=== PATIENT | female | born 1970 | race Caucasian/White ===

== ENCOUNTER 2016-12-04 12:49 | Emergency (ER) | payer OTHER ==
[~2016-12-04] VITALS: Ht 152.4 cm; Wt 79.8 kg
[~2016-12-04 12:49] MED LIST: OMEP20CA5 PO
[2016-12-04 12:58] VITALS: BP 125/82; PULSE 107; RESP 16; TEMP 99.4; O2SAT 96
[2016-12-04] MEDS ORDERED: CORT1SOL EACH EAR (14:29)
[2016-12-04] MEDS ORDERED: CEFT500T3 PO (14:29)
[2016-12-04] MEDS ORDERED: PHENERGAN W CODEIN PO (14:29)
--- NOTE | 2016-12-04 14:30 | RADHPO ---
EXAM DATE/TIME: 12/04/2016 13:52 [facility] COMPARISON: No previous studies available for comparison. INDICATIONS : Cough. MEDICAL HISTORY : None. SURGICAL HISTORY : None. ENCOUNTER: Initial ACUITY: 3 weeks PAIN SCORE: 0/10 LOCATION: Bilateral chest FINDINGS: The cardiac silhouette is normal in transverse diameter. The lungs are free of acute parenchymal opac ity. No effusions are identified. There is mild scoliotic deformity convex to the right. CONCLUSION: 1. No acute cardiopulmonary disease. Josué Amos MD on December 04, 2016 at 14:29 Board Certified Radiologist. This report was verified electronically.
--- NOTE | 2016-12-04 14:35 | PD ---
HPI Chief Complaint: Cold / Flu Symptoms Time Seen by Provider: 13:40 Travel History International Travel<30 days: No Contact w/Intl Traveler<30days: No Traveled to known affect area: No History of Present Illness HPI 46-year-old female complaining of persistent cough, headache, congestion, earache, sore throat, chest wall pain. Patient states that the symptoms started about 2 weeks ago. Patient states that she was seen by physician locally and given amoxicillin. Patient states that the symptoms persist despite the medication. Patient was seen by physician 2 days ago and given prescription for doxycycline. Patient states that she had persistent dry cough. Patient states that she has mild headache and earache and sore throat. Patient denies any fever chills. Patient denies any abdominal pain. Patient has nausea but no vomiting or diarrhea. PFSH Past Medical History Cancer: No Cardiovascular Problems: Yes (MURMMUR) Diabetes: No Diminished Hearing: No Endocrine: No Genitourinary: No Hepatitis: No Hiatal Hernia: No Immune Disorder: No Musculoskeletal: No Neurologic: No Psychiatric: No Reproductive: No Respiratory: No Immunizations Current: Yes Pancreatitis: Yes Thyroid Disease: No Influenza Vaccination: Yes ?: Not Past Surgical History Abdominal Surgery: Yes ( x 2) AICD: No Section: Yes (x 2) Joint Replacement: No Pacemaker: No Other Surgery: Yes Social History Alcohol Use: Yes (Socially) Tobacco Use: No Substance Use: No Allergies-Medications (Allergen,Severity, Reaction): Coded Allergies: Tramadol (Verified Allergy, Unknown, ITCHING/HIVES, 12/04/16) Reported Meds & Prescriptions Reported Meds & Active Scripts Active Cortisporin HC Otic Drops (Paqevvnt-Qpcjdaaze-BV Otic Drops) 3.5-10,000-1 Mg- Units-% Soln 4 Drop EACH EAR QID [Phenergan W Codein] 10 Ml PO Q6HR Ceftin (Cefuroxime Axetil) 500 Mg Tab 500 Mg PO BID Review of Systems General / Constitutional: No: Fever Eyes: No: Visual changes HENT: Positive: Sore Throat, Earache, No: Headaches Cardiovascular: No: Chest Pain or Discomfort Respiratory: Positive: Cough, No: Shortness of Breath Gastrointestinal: No: Abdominal Pain Genitourinary: No: Dysuria Musculoskeletal: No: Pain Skin: No Rash Neurologic: No: Weakness Psychiatric: No: Depression Endocrine: No: Polydipsia Hematologic/Lymphatic: No: Easy Bruising Physical Exam Narrative GENERAL: Well-nourished, well-developed patient. SKIN: Focused skin assessment warm/dry. HEAD: Normocephalic. EYES: No scleral icterus. No injection or drainage. Both ear canals are impacted with cerumen. Throat: Mild erythematous. NECK: Supple, trachea midline. No JVD. Patient has mild anterior cervical lymphadenopathy. No meningismus CARDIOVASCULAR: Regular rate and rhythm without murmurs, gallops, or rubs. RESPIRATORY: Breath sounds equal bilaterally. No accessory muscle use. GASTROINTESTINAL: Abdomen soft, non-tender, nondistended. MUSCULOSKELETAL: No cyanosis, or edema. BACK: Nontender without obvious deformity. No CVA tenderness. Data Data Last Documented VS Vital Signs Date Time Temp Pulse Resp B/P Pulse Ox O2 Delivery O2 Flow Rate FiO2 12/04/16 13:26 Room Air 12/04/16 12:58 99.4 107 16 125/82 96 Orders Chest, Single Ap (12/04/16 13:45) [facility] Medical Decision Making Medical Screen Exam Complete: Yes Emergency Medical Condition: Yes Interpretation(s) 1435 PM. Chest x-ray shows no acute consolidation. Differential Diagnosis Differential diagnosis including viral syndrome, otitis media, pharyngitis, bronchitis, pneumonia. Narrative Course 46-year-old female with headache, earache, sore throat, coughing congestion. Procedures Procedure Narrative Bilateral ear irrigation with warm water. Diagnosis Primary Impression: Bronchitis Additional Impression: Impacted cerumen Qualified Code: H61.23 - Bilateral impacted cerumen Patient Instructions: General Instructions Additional Instructions: Continue with doxycycline. Ceftin as directed. Cough medication as directed. Tylenol for fever headache. Follow-up with personal physician. Return if worse. Med/Other Pt SpecificInfo: Prescription(s) given Scripts Atykwfcl-Dvwxwcfnl-NB Otic Drops (Cortisporin HC Otic Drops)3.5-10,000-1 Mg- Units-% Soln4 Drop EACH EAR QID #1 BOTTLE Ref 0 Prov:Abel Hinsd MD 12/04/16 [Phenergan W Codein] No Conflict Check10 Ml PO Q6HR #120 Prov:Abel Hinds MD 12/04/16 Cefuroxime (Ceftin)500 Mg [id number] Mg PO BID #20 TAB Ref 0 Prov:Abel Hinds MD 12/04/16 Disposition: 01 DISCHARGE HOME Condition: Stable Abel Hinds MD Dec 04, 2016 14:35
[2016-12-04 15:04] VITALS: BP 122/77
== END 2016-12-04 15:17 | disposition home or self-care (01) ==
LOC: PHED 12:49
DX: J40 Bronchitis, not specified as acute or chronic (principal); H61.23 Impacted cerumen, bilateral
CPT/HCPCS: 71010; 99283

== ENCOUNTER → 2017-06-11 | Day surgery (SDC) | payer OTHER ==
[~2017-06-11] MED LIST changes: +BUPIVACAINE HCL PF 0.25% 30 ML VIAL ONE; +CEFT500T3 PO; +CORT1SOL EACH EAR; +KETOROLAC TROMETHAMINE 30 MG/ML (IVP) VIAL IV PUSH ONE; +MIDAZOLAM HCL 2 MG/2 ML VIAL ONE; -OMEP20CA5 PO; +ONDANSETRON HCL 4 MG/2 ML VIAL IV PUSH ONE; +PHENERGAN W CODEIN PO; +PROPOFOL 200 MG/20 ML AMP IV ONE; +ceFAZolin 2 GM PREMIX 50 ML ONE
--- NOTE | 2017-06-11 23:50 | MP ---
cc: RADHA RODRIGUES DPM DATE OF SURGERY 06/11/17 PREOPERATIVE DIAGNOSIS Left fourth digit hammertoe. POSTOPERATIVE DIAGNOSIS Left fourth digit hammertoe. PROCEDURE Left fourth digit DIPJ arthroplasty fusion. SPECIMEN None. ESTIMATED BLOOD LOSS Less than 10 ml. COMPLICATIONS None. ANESTHESIA General with local 15 cc of 0.25% Marcaine plain. TOURNIQUET TIME 25 minutes approximately at 215 mmHg about the patient's left calf. PLAN OF ACTIVITY PACU then DC home once stable per same-day surgery criteria. JUSTIFICATION FOR PROCEDURE This is a pleasant 46-year-old female with worsening toe deformity and pain with ambulation. We devised a plan to move forward with fusion of the deformed joint at the DIPJ. The patient was educated on pin fixation, stiffness, swelling, possible recurrence of deformity. No guarantees given or implied regarding the outcome. PROCEDURE IN DETAIL Under mild sedation the patient was brought to the operating room, placed on the operative table in the supine position. Following the induction of general anesthesia, local anesthesia was attained about the forefoot utilizing standard block fashion. The patient's foot was then scrubbed, prepped and draped in the usual aseptic fashion. The foot was elevated, exsanguinated and the previously placed mid-left ankle tourniquet was inflated to 215 mmHg. An incision was made over the dorsal aspect of the level of the DIPJ, this is approximately 1.5 cm incision. Sharp and blunt dissection was carried down to the extensor digitorum longus tendon which was then transected exposing the joint, the joint surface, the base of the distal phalanx and the head of the middle phalanx was then removed beyond the cartilaginous surface utilizing a K-wire. It was then placed the distal phalanx and then retrograded back across the DIPJ joint anchoring in the base of the proximal phalanx. Fluoroscopy was used. There was noted to be fusion of the toe joint. Clinically there was no longer a plantar flexor or abductovalgus type attitude of the digit including the correction of the procedure. The tendon was then coapted utilizing Vicryl. Skin was closed utilizing combination of Monocryl and nylon. Upon relieving the tourniquet there is a prompt hyperemic response to all digits without any delayed capillary fill time. A bulky bandage placed. The patient was then positioned within a controlled ankle motion boot. She is to heel weight bear to tolerance. I will see the patient in 3-5 days. EPIFANIO Irizarry/ALLY /3:55 PM /11:31 PM
== END | disposition home or self-care (01) ==
LOC: ESDC 12:38
PROVIDERS: ATTEND Podiatrist Foot & Ankle Surgery
DX: M20.42 Other hammer toe(s) (acquired), left foot (principal)
CPT/HCPCS: 01480; 28285; 73620; 76000; J0690; J1885; J2250; J2405; J3010

== ENCOUNTER 2017-12-22 14:11 | Emergency (ER) | payer OTHER ==
[~2017-12-22] VITALS: Ht 172.7 cm; Wt 84.3 kg
[~2017-12-22 14:11] MED LIST changes: -BUPIVACAINE HCL PF 0.25% 30 ML VIAL ONE; -KETOROLAC TROMETHAMINE 30 MG/ML (IVP) VIAL IV PUSH ONE; -MIDAZOLAM HCL 2 MG/2 ML VIAL ONE; -ONDANSETRON HCL 4 MG/2 ML VIAL IV PUSH ONE; -PROPOFOL 200 MG/20 ML AMP IV ONE; -ceFAZolin 2 GM PREMIX 50 ML ONE
[2017-12-22 14:18] VITALS: BP 144/65; PULSE 112; RESP 18; TEMP 98.5; O2SAT 97
[2017-12-22] MEDS ORDERED: CEFD300C PO (14:28)
[2017-12-22] MEDS ORDERED: ALBUAER3 INH (14:28)
[2017-12-22] MEDS ORDERED: RESP: ALBUTEROL 2.5 MG/IPRATROPIUM 0.5 MG NEB (SCH) INH ONE (14:45)
--- NOTE | 2017-12-22 14:45 | PD ---
HPI Chief Complaint: Cold / Flu Symptoms Time Seen by Provider: 14:31 Travel History International Travel<30 days: No Contact w/Intl Traveler<30days: No Traveled to known affect area: No History of Present Illness HPI 47-year-old female presents emergency department for evaluation of cough, congestion and chest tightness that has worsened over the last couple days. Patient states that she went to her primary care physician who prescribed Ceftin, steroids, Tessalon Perles and an inhaler however, says that she has not had significant improvement. Says that her chest hurts and points to her sternal notch. Says that the pain is present whenever she coughs. Says that she is having trouble catching her breath when she coughs. Denies fevers but say she has had chills. She denies history of tobacco use, denies medical issues or medication use other than as stated above. PFSH Past Medical History Medical History: Denies Significant Hx Cancer: No Cardiovascular Problems: Yes (MURMMUR) Diabetes: No Diminished Hearing: No Endocrine: No Genitourinary: No Hepatitis: No Hiatal Hernia: No Immune Disorder: No Musculoskeletal: No Neurologic: No Psychiatric: No Reproductive: No Respiratory: No Immunizations Current: Yes Pancreatitis: Yes Thyroid Disease: No Tetanus Vaccination: < 5 Years Influenza Vaccination: Yes ?: Not LMP: 12/16/17 Past Surgical History Abdominal Surgery: Yes ( x 2) AICD: No Section: Yes (x 2) Cholecystectomy: Yes Joint Replacement: No Pacemaker: No Other Surgery: Yes (left foot 4 th digit, pin in place) Social History Alcohol Use: Yes (Socially beer or wine, mix drinks) Tobacco Use: No Substance Use: No Allergies-Medications (Allergen,Severity, Reaction): Coded Allergies: tramadol (Unverified Allergy, Unknown, ITCHING/HIVES, 12/22/17) Reported Meds & Prescriptions Reported Meds & Active Scripts Active Ipratropium Neb (Ipratropium Orla) 0.5 Mg/2.5 Ml Amp 0.5 Mg NEB Q6HR NEB PRN Albuterol Neb (Albuterol Sulfate) 2.5 Mg/3 Ml Neb 2.5 Mg NEB Q4HR NEB PRN Nebulizer 1 Mis Mis Ea .XX DIRECTED Doxycycline Hyclate 100 Mg Cap 100 Mg PO BID 10 Days Guaifenesin AC Liq (Guaifenesin-Codeine Liq) 100-10 Mg/5 Ml Syrp 10 Ml PO Q6H PRN 5 Days Reported Proair Hfa 8.5 GM Inh (Albuterol Sulfate) 90 Mcg/Act Aer 2 Puff INH Q4-6H PRN 108 mcg/actuation Cefdinir 300 Mg Cap 300 Mg PO BID Review of Systems Except as stated in HPI: all other systems reviewed are Neg Physical Exam Narrative GENERAL: Well-nourished, well-developed patient. SKIN: Focused skin assessment warm/dry. HEAD: Normocephalic. EYES: No scleral icterus. No injection or drainage. Mild pharyngeal injection without tonsillar hypertrophy or exudate NECK: Supple, trachea midline. No JVD or lymphadenopathy. CARDIOVASCULAR: Regular rate and rhythm without murmurs, gallops, or rubs. RESPIRATORY: Breath sounds equal bilaterally. No accessory muscle use. Slight wheeze bilateral lung jefferson. GASTROINTESTINAL: Abdomen soft, non-tender, nondistended. No CVA tenderness MUSCULOSKELETAL: No cyanosis, or edema. Homans sign negative bilaterally BACK: Nontender without obvious deformity. No CVA tenderness. Data Data Last Documented VS Vital Signs Date Time Temp Pulse Resp B/P (MAP) Pulse Ox O2 Delivery O2 Flow Rate FiO2 12/22/17 14:25 108 16 97 Room Air 12/22/17 14:18 98.5 144/65 (91) Orders Orders Chest, Pa & Lat (12/22/17 ) Albuterol-Ipratropium Neb (Duoneb Neb) (12/22/17 14:45) Ed Discharge Order (12/22/17 15:19) [facility] Medical Decision Making Medical Screen Exam Complete: Yes Emergency Medical Condition: Yes Differential Diagnosis Bronchitis, pneumonia, mycoplasma pneumonia, allergic rhinitis, postnasal drip Narrative Course 47y female presents emergency department for evaluation of cough, congestion, chest tightness that is worsened over the last couple days. She denies history of asthma, COPD, or tobacco use. Patient has not taken any uaqi-soy-qkxecgo medications for her cough. Vital signs stable. Chest x-ray ordered to rule out acute process associated with a cough Review of the EMR: Patient presented to the emergency department approximately 1 year ago with similar symptoms. Patient apparently not improved with outpatient medications given by her primary care physician. She took 2 antibiotics which include amoxicillin, Ceftin, and doxycycline. She was subsequently given Phenergan with codeine in the emergency department. This apparently resolved her symptoms. Says she does feel significantly better after the DuoNeb. Patient says that she does have a nebulizer at home, does not know if it is operational. I will prescribe a nebulizer with albuterol and ipratropium solution. In addition, doxycycline for possible worsening of her symptoms. Because her cough has been persistent, will prescribe Robitussin with codeine. Advised she go back to her primary care physician for further treatment and evaluation. She is thankful for the treatment she received emergency department today. Diagnosis Primary Impression: Bronchitis Additional Impression: Allergic rhinitis Qualified Codes: J30.9 - Allergic rhinitis, unspecified Referrals: Primary Care Physician Lease Purchase Driver Additional Instructions: You may use a drop of honey and lemon in a cup of warm water to soothe your cough. (If greater than 1 year old) Ensure good hydration and a nutritious diet. Note that viral infections may last for several weeks. Follow up with your primary physician within 2-3 days. Consider follow up with a deputy of counter intelligence for your cough. You may wait several days to take the antibiotic until you try over the counter regimens listed here. Return to the ED for worsening or persistent symptoms. Consider taking Zyrtec, Claritin, or Jazmyne for your cough. Generic medication is okay. Scripts Ipratropium Neb (Ipratropium Neb) 0.5 Mg/2.5 Ml Amp 0.5 MG NEB Q6HR NEB Y for SHORTNESS OF BREATH, #120 NEBULE 0 Refills Prov: Tim Calixto MD 12/22/17 Albuterol Neb (Albuterol Neb) 2.5 Mg/3 Ml Neb 2.5 MG NEB Q4HR NEB Y for SHORTNESS OF BREATH, #60 NEBULE 0 Refills Prov: Tim Calixto MD 12/22/17 Nebulizer (Nebulizer) 1 Mis Mis EA .XX DIRECTED for Breathing Treatment, #1 0 Refills Prov: Tim Calixto MD 12/22/17 Doxycycline Hyclate (Doxycycline Hyclate) 100 Mg Cap 100 MG PO BID for Infection for 10 Days, #20 CAP 0 Refills Prov: Tim Calixto MD 12/22/17 Guaifenesin-Codeine Liq (Guaifenesin AC Liq) 100-10 Mg/5 Ml Syrp 10 ML PO Q6H Y for COUGH for 5 Days, #1 BOTTLE 0 Refills Prov: Tim Calixto MD 12/22/17 Disposition: 01 DISCHARGE HOME Condition: Stable Mansi Lopez Dec 22, 2017 14:45
--- NOTE | 2017-12-22 14:59 | RADRPT ---
EXAM DATE/TIME: 12/22/2017 14:46 [facility] COMPARISON: No previous studies available for comparison. INDICATIONS : Chest pain, productive cough and short of breath for one week. MEDICAL HISTORY : None. SURGICAL HISTORY : None. ENCOUNTER: Initial ACUITY: 1 week PAIN SCORE: 4/10 LOCATION: Bilateral chest FINDINGS: PA and lateral views of the chest demonstrate the lungs to be symmetrically aerated without evidence of mass, infiltrate or effusion. The cardiomediastinal contours are unremarkable. Osseous structure s are intact. CONCLUSION: No acute disease. Herrera Gallagher MD on December 22, 2017 at 14:57 Board Certified Radiologist. This report was verified electronically.
[2017-12-22] MEDS ORDERED: CEFU1TAB20 PO (15:09)
[2017-12-22] MEDS ORDERED: GUAISYP4 PO (15:09)
[2017-12-22] MEDS ORDERED: DOXY100C PO (15:12)
[2017-12-22] MEDS ORDERED: ALBU0.08 NEB (15:18)
[2017-12-22] MEDS ORDERED: IPRA0.02 NEB (15:18)
[2017-12-22] MEDS ORDERED: NEBULIZER1 MI1 (15:18)
== END 2017-12-22 15:27 | disposition home or self-care (01) ==
LOC: PHEFT 14:11
DX: J40 Bronchitis, not specified as acute or chronic (principal); J30.9 Allergic rhinitis, unspecified
CPT/HCPCS: 71046; 94664; 99283